=== PATIENT | male | born 1985 | race American Indian/Alaskan Native ===

== ENCOUNTER 2019-02-21 13:56 | Emergency (ER) | payer SELFPAY ==
--- NOTE | 2019-02-21 16:06 | Emergency Department Report ---
ED General Adult HPI - General Chief complaint: Allergic Reaction Stated complaint: ALLERGIC REACTION Time Seen by Provider: 02/21/19 14:26 Source: patient, EMS (ems notes not available at time of chart dictation), RN notes reviewed Mode of arrival: Stretcher Limitations: No Limitations - History of Present Illness Initial comments: This is a 33-year-old gentleman who is not known to this provider previously. He has no chronic medical conditions. He reports being in his usual state of health when he was either bit or stung on his left foot. After this event, he shortly develops a sensation of itchiness and pruritus and skin discoloration. He denied other injuries, and he denied other complaints. 911 was contacted, and he was treated in the prehospital setting for presumed allergic reaction. His symptoms are resolved, and he has no additional complaints, he endorses that his pruritus is resolved, and he would like to go home. He denies physical pain at this time. -: Sudden Location: left, lower extremity Radiation: non-radiation Quality: other (itchy) Consistency: now resolved Improves with: medication Worsens with: none - Related Data Previous Rx's Medication Instructions Recorded Last Taken Type EPINEPHrine [Epipen 2-Volodymyr] 0.3 mg IM DAILY PRN #2 ml 02/21/19 Unknown Rx Famotidine [Pepcid] 20 mg PO BID #10 tablet 02/21/19 Unknown Rx diphenhydrAMINE [Benadryl] 50 mg PO Q8HR PRN #20 capsule 02/21/19 Unknown Rx ED Review of Systems ROS: Stated complaint: ALLERGIC REACTION Other details as noted in HPI Constitutional: denies: fever Eyes: denies: eye discharge ENT: denies: epistaxis Respiratory: denies: cough Cardiovascular: denies: chest pain Gastrointestinal: denies: abdominal pain Skin: pruritus Neurological: denies: weakness ED Past Medical Hx - Past Medical History Previous Medical History?: No - Surgical History Past Surgical History?: No - Social History Smoking Status: Never Smoker Substance Use Type: Alcohol - Medications Home Medications: Home Medications Medication Instructions Recorded Confirmed Last Taken Type EPINEPHrine [Epipen 2-Volodymyr] 0.3 mg IM DAILY PRN #2 ml 02/21/19 Unknown Rx Famotidine [Pepcid] 20 mg PO BID #10 tablet 02/21/19 Unknown Rx diphenhydrAMINE [Benadryl] 50 mg PO Q8HR PRN #20 capsule 02/21/19 Unknown Rx ED Physical Exam - General Limitations: No Limitations General appearance: alert, in no apparent distress - Head Head exam: Present: atraumatic, normocephalic - Eye Eye exam: Present: normal appearance, EOMI. Absent: nystagmus - ENT ENT exam: Present: normal exam, normal orophraynx, mucous membranes moist, normal external ear exam - Neck Neck exam: Present: normal inspection, full ROM. Absent: tenderness, meningismus - Respiratory Respiratory exam: Present: normal lung sounds bilaterally. Absent: respiratory distress - Cardiovascular Cardiovascular Exam: Present: regular rate, normal rhythm, normal heart sounds. Absent: bradycardia, tachycardia, irregular rhythm, systolic murmur, diastolic murmur, rubs, gallop - GI/Abdominal GI/Abdominal exam: Present: soft. Absent: distended, tenderness, guarding, rebound, rigid - Rectal Rectal exam: Present: deferred - Extremities Exam Extremities exam: Present: normal inspection, full ROM, other (2+ pulses noted in the bilateral upper, lower extremities. Compartments soft. No long bony tenderness. The pelvis is stable.). Absent: pedal edema, joint swelling, calf tenderness - Back Exam Back exam: Present: normal inspection, full ROM. Absent: tenderness, CVA tenderness (R), CVA tenderness (L), paraspinal tenderness, vertebral tenderness - Neurological Exam Neurological exam: Present: alert, oriented X3, normal gait, other (Extraocular movements intact. Tongue midline. No facial droop. Facial sensation intact to light touch in the V1, V2, V3 distribution bilaterally. 5 and 5 strength in 4 extremities.. Sensation is intact to light touch in 4 extremities.). Absent: motor sensory deficit - Psychiatric Psychiatric exam: Present: normal affect, normal mood - Skin Skin exam: Present: warm, dry, intact, normal color. Absent: rash ED Course Vital Signs 02/21/19 02/21/19 14:37 14:38 Temperature 98.6 F Pulse Rate 77 Respiratory 18 16 Rate Blood Pressure 119/70 O2 Sat by Pulse 98 100 Oximetry ED Medical Decision Making - Lab Data Vital Signs 02/21/19 02/21/19 14:37 14:38 Temperature 98.6 F Pulse Rate 77 Respiratory 18 16 Rate Blood Pressure 119/70 O2 Sat by Pulse 98 100 Oximetry - Medical Decision Making Differential diagnosis, including not limited to: Anaphylactic reaction, anaphylactoid reaction, allergy to sting/bite Assessment and plan: 33-year-old gentleman, well-developed, well-nourished in appearance, nontoxic appearing, status post questionable bite or sting, with nonspecific reported cutaneous reaction. He is treated with Solu-Medrol and Benadryl prior to my evaluation. He has no complaints at this time. He is protecting his airway at this time. No obvious cutaneous lesions noted. The patient does not appear to have an emergent medical condition at this time. He will be discharged with as needed epinephrine pen, as needed Pepcid/Benadryl, and he can follow up with an outpatient primary care doctor. Return precautions are extensively reviewed. He verbalizes understanding Critical care attestation.: If time is entered above; I have spent that time in minutes in the direct care of this critically ill patient, excluding procedure time. ED Disposition Clinical Impression: History of insect bite Disposition: DC-01 TO HOME OR SELFCARE Is pt being admited?: No Does the pt Need Aspirin: No Condition: Stable Instructions: Anaphylaxis (ED) Additional Instructions: Take medications as needed/directed. Avoid exposure to biting and stinging insects/spiders. Follow-up with the primary care doctor within the next 4-6 weeks. Return to the emergency room right away with new, worsening or different symptoms, or symptoms not present on the initial emergency room evaluation. Prescriptions: diphenhydrAMINE [Benadryl] 50 mg PO Q8HR PRN #20 capsule PRN Reason: Allergic Reaction EPINEPHrine [Epipen 2-Volodymyr] 0.3 mg IM DAILY PRN #2 ml PRN Reason: Allergic Reaction Famotidine [Pepcid] 20 mg PO BID #10 tablet Referrals: [facility] [Provider Group] - as needed [facility] [Provider Group] - as needed
[2019-02-21 17:56] VITALS: BP 123/64
== END 2019-02-21 17:57 | disposition home or self-care (01) ==
LOC: ED 13:56
DX: S90.862A Insect bite (nonvenomous), left foot, initial encounter (principal); Z79.899 Other long term (current) drug therapy; W57.XXXA Bitten or stung by nonvenomous insect and other nonvenomous arthropods, initial encounter; Y93.89 Activity, other specified; Y92.89 Other specified places as the place of occurrence of the external cause; Y99.8 Other external cause status

== ENCOUNTER 2020-07-29 12:27 | Emergency (ER) | payer BC ==
[2020-07-29 12:35] VITALS: BP 123/76
--- NOTE | 2020-07-29 13:19 | Emergency Department Report ---
ED General Adult HPI - General Chief complaint: Headache Stated complaint: MIGRAINE, FATIQUE; FEVER Time Seen by Provider: 07/29/20 13:09 Source: patient Mode of arrival: Ambulatory Limitations: No Limitations - History of Present Illness Initial comments: Patient is a 35-year-old male presents emergency room complaints of URI symptoms that began 07/21/2020. He has associated headache, subjective fever, chills, generalized weakness, cramping in his legs, sinus pressure. He states that he took a COVID-19 test yesterday but is awaiting his results. He denies any leg swelling, rhinorrhea, cough, shortness of breath, chest pain, abdominal pain, vomiting, diarrhea, sore throat, ear pain. He states that yearly he does get a migraine headache which improves with ibuprofen. He denies any allergies to medications. - Related Data Previous Rx's Medication Instructions Recorded Last Taken Type EPINEPHrine [Epipen 2-Volodymyr] 0.3 mg IM DAILY PRN #2 ml 02/21/19 Unknown Rx Famotidine [Pepcid] 20 mg PO BID #10 tablet 02/21/19 Unknown Rx diphenhydrAMINE [Benadryl] 50 mg PO Q8HR PRN #20 capsule 02/21/19 Unknown Rx Amoxicillin/Potassium Clav 1 each PO BID 10 Days #20 tablet 07/29/20 Unknown Rx [Augmentin 875-125 Tablet] Butalb/Acetaminophen/Caffeine 1 cap PO Q8HR PRN #12 cap 07/29/20 Unknown Rx [Fioricet 50-300-40 mg CAP] Fluticasone [Flonase] 1 spray NS QDAY #1 bottle 07/29/20 Unknown Rx guaiFENesin ER [Mucinex ER] 600 mg PO Q12H #14 tablet.er 07/29/20 Unknown Rx Allergies Allergy/AdvReac Type Severity Reaction Status Date / Time No Known Allergies Allergy Unverified 07/29/20 12:32 ED Review of Systems ROS: Stated complaint: MIGRAINE, FATIQUE; FEVER Other details as noted in HPI Comment: All other systems reviewed and negative ED Past Medical Hx - Past Medical History Previous Medical History?: No - Surgical History Past Surgical History?: No - Social History Smoking Status: Never Smoker Substance Use Type: Alcohol - Medications Home Medications: Home Medications Medication Instructions Recorded Confirmed Last Taken Type EPINEPHrine [Epipen 2-Volodymyr] 0.3 mg IM DAILY PRN #2 ml 02/21/19 Unknown Rx Famotidine [Pepcid] 20 mg PO BID #10 tablet 02/21/19 Unknown Rx diphenhydrAMINE [Benadryl] 50 mg PO Q8HR PRN #20 capsule 02/21/19 Unknown Rx Amoxicillin/Potassium Clav 1 each PO BID 10 Days #20 tablet 07/29/20 Unknown Rx [Augmentin 875-125 Tablet] Butalb/Acetaminophen/Caffeine 1 cap PO Q8HR PRN #12 cap 07/29/20 Unknown Rx [Fioricet 50-300-40 mg CAP] Fluticasone [Flonase] 1 spray NS QDAY #1 bottle 07/29/20 Unknown Rx guaiFENesin ER [Mucinex ER] 600 mg PO Q12H #14 tablet.er 07/29/20 Unknown Rx ED Physical Exam - General Limitations: No Limitations General appearance: alert, in no apparent distress - Head Head exam: Present: atraumatic, normocephalic - Eye Eye exam: Present: normal appearance - ENT ENT exam: Present: normal orophraynx, mucous membranes moist, TM's normal bilaterally, normal external ear exam, other (erythema and edema of the nasal turbinates bilaterally, right frontal sinus ttp) - Neck Neck exam: Present: full ROM. Absent: meningismus - Respiratory Respiratory exam: Present: normal lung sounds bilaterally. Absent: respiratory distress, wheezes, rales, rhonchi, stridor, chest wall tenderness, accessory muscle use, decreased breath sounds, prolonged expiratory - Cardiovascular Cardiovascular Exam: Present: regular rate, normal rhythm, normal heart sounds. Absent: systolic murmur, diastolic murmur, rubs, gallop - Extremities Exam Extremities exam: Absent: pedal edema, calf tenderness - Neurological Exam Neurological exam: Present: alert, oriented X3 - Psychiatric Psychiatric exam: Present: normal affect, normal mood - Skin Skin exam: Present: warm, dry, intact ED Course Vital Signs 07/29/20 12:34 Temperature 97.8 F Pulse Rate 89 Respiratory 20 Rate Blood Pressure 123/76 O2 Sat by Pulse 96 Oximetry ED Medical Decision Making - Medical Decision Making Patient is a 35-year-old male presents emergency room complaints of URI symptoms that began 07/21/2020. He has associated headache, subjective fever, chills, generalized weakness, cramping in his legs, sinus pressure. He states that he took a COVID-19 test yesterday but is awaiting his results. He denies any leg swelling, rhinorrhea, cough, shortness of breath, chest pain, abdominal pain, vomiting, diarrhea, sore throat, ear pain. He states that yearly he does get a migraine headache which improves with ibuprofen. He denies any allergies to medications. vitals are normal. on exam: erythema and edema of the nasal turbinates bilaterally, right frontal sinus ttp. examination consistent with acute sinusitis. given prescription for augmentin, flonase, fioricet, mucinex. advised pt please take medication as prescribed. Increase your water intake. Increase your electrolyte intake over the next 2 to 3 days by drinking Gatorade or Powerade or Pedialyte. Follow-up with your primary care doctor for reexam ination. Return to emergency room immediately for any new or worsening symptoms Critical care attestation.: If time is entered above; I have spent that time in minutes in the direct care of this critically ill patient, excluding procedure time. ED Disposition Clinical Impression: Acute sinusitis Qualifiers: Sinusitis location: frontal Recurrence: non-recurrent Qualified Code(s): J01.10 - Acute frontal sinusitis, unspecified Disposition: DC- TO HOME OR SELFCARE Is pt being admited?: No Does the pt Need Aspirin: No Condition: Stable Instructions: Sinusitis, Adult, [id number] Additional Instructions: Please take medication as prescribed. Increase your water intake. Increase your electrolyte intake over the next 2 to 3 days by drinking Gatorade or Powerade or Pedialyte. Follow-up with your primary care doctor for reexamination. Return to emergency room immediately for any new or worsening symptoms. Prescriptions: Amoxicillin/Potassium Clav [Augmentin 875-125 Tablet] 1 each PO BID 10 Days #20 tablet Butalb/Acetaminophen/Caffeine [Fioricet 50-300-40 mg CAP] 1 cap PO Q8HR PRN #12 cap PRN Reason: headache Fluticasone [Flonase] 1 spray NS QDAY #1 bottle guaiFENesin ER [Mucinex ER] 600 mg PO Q12H #14 tablet.er Referrals: TAMIA SCHAEFER MD [Staff Physician] - 2-3 Days [facility] [Provider Group] - 2-3 Days Time of Disposition: 13:17 Print Language: [place]
== END 2020-07-29 13:41 | disposition home or self-care (01) ==
LOC: ED 12:27
DX: J01.90 Acute sinusitis, unspecified (principal); Z79.2 Long term (current) use of antibiotics; Z79.899 Other long term (current) drug therapy
CPT/HCPCS: 99281